=== PATIENT | female | born 1990 | race Caucasian/White ===

== ENCOUNTER → 2016-07-28 | Outpatient (CLI) | payer OTHER ==
[~2016-07-28] MED LIST: ALBUAER2 INH; BCPILLS PO; DAYQLIQ; FLNIN NAE; SYMIN160 INH; TRIA0.1L TD
--- NOTE | 2016-07-28 09:05 | DIAGNOSTIC IMAGING REPORT ---
MRI OF THE RIGHT WRIST WITHOUT CONTRAST CLINICAL HISTORY: Right wrist pain. No known trauma. COMPARISON STUDY: No previous studies for comparison. TECHNIQUE: Utilizing a 1.5 Valerie magnet and dedicated coil, multiplanar, multi echo imaging of the right wrist was performed without intra-articular or intravenous contrast. FINDINGS: A marker was placed on the skin at site of maximal pain. This overlies the dorsal medial aspect of the right wrist. There is no marrow edema or marrow replacement. There is linear signal within the ulnar aspect of the TFCC. A definite tear is not identified. The radial attachment is intact. No mass or fluid collection is shown adjacent to the right wrist. Scapholunate and lunotriquetral ligaments appear intact. Note is made of a 5 mm bony excrescence arising from the medial aspect of the distal triquetrum which is contiguous with the underlying marrow. This may reflect an osteochondroma. No additional bony lesions are present. No abnormalities within the carpal tunnel are identified. IMPRESSION: 1. 5 mm bony excrescence arising from the medial aspect of the triquetrum suggestive of a small osteochondroma or a congenital anomaly. Mass effect with mild bowing of the overlying tendons. No evidence for tendinopathy. 2. Linear signal within the ulnar aspect of the TFCC. This is likely within normal limits. A TFCC tear is considered less likely. Electronically signed by: Curtis Anderson M.D. 07/28/2016 9:04 AM Dictated Date/Time: 07/28/2016 8:51 AM
== END | disposition home or self-care (01) ==
LOC: C.MRIBC 07:52
PROVIDERS: ATTEND Orthopaedic Surgery
DX: M25.531 Pain in right wrist (principal); M25.831 Other specified joint disorders, right wrist

== ENCOUNTER → 2016-07-31 | Outpatient (CLI) | payer OTHER | END | disposition home or self-care (01) | LOC: C.LABSPEC 16:49 | PROVIDERS: ATTEND Obstetrics & Gynecology | DX: B37.3 Candidiasis of vulva and vagina (principal) ==

== ENCOUNTER → 2016-08-04 | Outpatient (CLI) | payer OTHER ==
[2016-08-07 08:47] LABS: CHLAMYDIA TRACH RNA*** NOT DETECTED (NOT DETECTED); GC (NEIS GONORRHOEAE)RNA** NOT DETECTED (NOT DETECTED)
== END | disposition home or self-care (01) ==
LOC: C.LABSPEC 14:01
PROVIDERS: ATTEND Obstetrics & Gynecology
DX: Z01.419 Encounter for gynecological examination (general) (routine) without abnormal findings (principal); J30.89 Other allergic rhinitis; Z11.3 Encounter for screening for infections with a predominantly sexual mode of transmission

== ENCOUNTER → 2016-08-04 | Outpatient (CLI) | payer OTHER | END | disposition home or self-care (01) | LOC: C.PAPS 14:28 | PROVIDERS: ATTEND Obstetrics & Gynecology | DX: Z01.419 Encounter for gynecological examination (general) (routine) without abnormal findings (principal); J30.89 Other allergic rhinitis; Z11.3 Encounter for screening for infections with a predominantly sexual mode of transmission ==

== ENCOUNTER → 2017-03-12 | Outpatient (CLI) | payer OTHER | END | disposition home or self-care (01) | LOC: C.LAB1850 10:36 | PROVIDERS: ATTEND Obstetrics & Gynecology | DX: Z31.69 Encounter for other general counseling and advice on procreation (principal) ==

== ENCOUNTER → 2017-10-08 | Outpatient (CLI) | payer OTHER | END | disposition home or self-care (01) | LOC: C.LAB1850 09:05 | PROVIDERS: ATTEND Obstetrics & Gynecology | DX: Z34.02 Encounter for supervision of normal first pregnancy, second trimester (principal) ==

== ENCOUNTER 2019-06-22 00:08 | Observation (INO) ==
--- NOTE | 2019-06-22 00:39 | Emergency Department Note ---
History of Present Illness General Chief complaint: Vaginal Bleeding Stated complaint: EXCESSIVE BLEEDING AFTER MISCARRAGE Time Seen by Provider: 06/22/19 00:20 Source: patient Mode of arrival: ambulatory Limitations: no limitations History of Present Illness Provider complaint: Vaginal bleeding, recent miscarriage Onset (ago): day(s) 10 Location: abdomen Severity: moderate Maximum Pain Intensity: 7 Current Pain Intensity: 7 Quality: + aching and + dull Relieved By: + none Exacerbated By: + none Associated symptoms: + malaise; no chest pain, no fever/chills, no nausea/vomiting and no shortness of breath Treatments prior to arrival: none This is a 28-year-old female who presents due to complaints of lower abdominal pain and vaginal bleeding due to a recent spontaneous . Pt states she was 9 weeks when an ultrasound revealed the baby no longer had a heartbeat. Patient states she does have a history of a bleeding disorder. Patient states she had used Cytotec and had heavy bleeding and presented to the emergency room. Patient states at that time her blood work was reassuring, her ultrasound showed that she had already passed the fetus, and the DIPPING MACHINE OPERATOR and her hardboard supervisor felt she was safe to go home. She states her bleeding had improved since then, and she did follow-up with Dr. Bustamante in the office for recheck. She states she has had bleeding like a light period ever since then until this evening. Patient states at 10 PM this evening she suddenly had heavy bleeding and passage of multiple clots. Patient states for the first hour between 10 and 11 PM she used 4-5 pads that she was feeling very quickly. Patient states she did pass several clots the largest of which was the size of an egg. Patient states on her initial arrival here she passed a large clot in the toilet as well. Patient states she has been feeling weak and tired today with lower abdominal discomfort. Patient denies any sharp pain or cramping. Patient states she does feel lightheaded/dizzy when she stands up. Patient denies nausea vomiting, chest pain or palpitations, shortness of breath. No loss of consciousness or syncopal events. Patient denies any bleeding from any other source. No recent change in bowel or bladder function. No known sick contact with any COVID positive individuals. Pt seen during a time of high acuity and national emergency pandemic while wearing PPE. Review of EMR, patient's hCG on 06/15 was 2848 which is down from her hCG on 06/09 when it was [address]131. Patient has a history of von Willebrand's disease. Home Medications Home Medications Medication Instructions Recorded Confirmed Type albuterol sulfate [Ventolin HFA] 2 puff INHALATION QID PRN 01/21/18 06/22/19 History cetirizine [Zyrtec] 10 mg PO DAILY 01/21/18 06/22/19 History montelukast 10 mg tablet 10 mg PO DAILY #90 tab 01/17/19 06/22/19 Rx escitalopram oxalate 10 mg PO DAILY 06/22/19 06/22/19 History metronidazole 500 mg PO BID 5 Days #10 tab 06/22/19 Rx Allergies Allergy/AdvReac Type Severity Reaction Status Date / Time animal dander Allergy Wheezing Verified 06/22/19 00:38 grass pollen Allergy Wheezing Verified 06/22/19 00:38 No Known Drug Allergies Allergy Unknown Verified 06/22/19 00:38 Past Med/Surg History Medical History Allergic rhinitis Asthma STABLE Hx of varicella Irritable bowel syndrome Rectal fissure Von Willebrand disease, type I DIAGNOSED 2/2 MENORRHAGIA; Plan to administer DDAVP 0.3 mcg/kg one hour prior to delivery (or 9cm) per hematology Surgical History H/O sinus surgery [place] teeth removed Family History Grandfather (Maternal) Alzheimer disease Brother Asthma Social History Preferred Language: Senegalese Communication Ability: Effective Visual Impairment: No Limitations Hearing Ability: Normal Jewelry Sales Representative Required: No Beliefs That Will Affect Care: None marital status: marital status details: Moy Gustafson (31) [phone] Current Living Situation: Spouse Current Living Situation Comment: 7 month old son and spouse, 2 dogs current occupational status: employed current occupation: [employer] Feels Safe at Home: Yes Smoking Status: Never smoker Second Hand Exposure: No ; Hx Alcohol Use: No Hx Substance Use: No Childhood Exposure to Second-Hand Smoke: No Dental Care, Regularly: Yes Physical Activity Frequency: Daily Seatbelt Use: always Sunscreen Use: Yes Review of Systems See HPI for pertinent positives & negatives. and A total of 10 systems reviewed and were otherwise negative Physical Exam Vital Signs Vital Signs - 24 hr 06/22/19 00:08 06/22/19 00:12 06/22/19 00:38 Temperature 36.9 C 36.8 C Temperature Source Oral Oral Pulse Rate 89 84 Pulse Rate [Finger] Pulse Rhythm [Finger] Respiratory Rate 16 20 15 Respiratory Effort / Characteristics Non-Labored Spontaneous Respiratory Depth Normal Normal Respiratory Pattern Blood Pressure 142/80 H 121/78 Blood Pressure [Left Arm] 115/81 Blood Pressure Mean 100 82 Blood Pressure Mean [Left Arm] 92 Blood Pressure Position [Left Arm] Pulse Oximetry 99 100 Oxygen Delivery Method Room Air Room Air Sepsis Action Taken by Nursing No Action Required 06/22/19 01:00 06/22/19 01:30 06/22/19 01:48 Temperature Temperature Source Pulse Rate 78 79 Pulse Rate [Finger] Pulse Rhythm [Finger] Respiratory Rate 17 23 Respiratory Effort / Characteristics Respiratory Depth Respiratory Pattern Blood Pressure 115/81 110/76 110/76 Blood Pressure [Left Arm] Blood Pressure Mean 96 85 85 Blood Pressure Mean [Left Arm] Blood Pressure Position [Left Arm] Pulse Oximetry Oxygen Delivery Method Sepsis Action Taken by Nursing 06/22/19 03:51 06/22/19 04:55 Temperature Temperature Source Pulse Rate Pulse Rate [Finger] 70 70 Pulse Rhythm [Finger] Regular Respiratory Rate 20 20 Respiratory Effort / Characteristics Non-Labored Spontaneous Non-Labored Spontaneous Respiratory Depth Normal Normal Respiratory Pattern Regular Regular Blood Pressure Blood Pressure [Left Arm] 144/78 H 128/82 Blood Pressure Mean Blood Pressure Mean [Left Arm] 100 97 Blood Pressure Position [Left Arm] Lying Lying Pulse Oximetry 99 98 Oxygen Delivery Method Room Air Room Air Sepsis Action Taken by Nursing GENERAL: alert, well appearing, well nourished, no distress, non-toxic EYE EXAM: normal conjunctiva, PERRL and EOM's grossly intact OROPHARYNX: no exudate, no erythema, lips, buccal mucosa, and tongue normal and mucous membranes are moist NECK: supple, no nuchal rigidity, no adenopathy, non-tender LUNGS: Clear to auscultation. Normal chest wall mechanics, no w/r/r HEART: no murmurs, S1 normal and S2 normal ABDOMEN: abdomen soft, lower abdominal tenderness with palpation, normo-active bowel sounds, no masses, no rebound or guarding. BACK: Back is symmetrical on inspection and there is no deformity, no midline tenderness, no CVA tenderness. SKIN: no rashes and no bruising UPPER EXTREMITIES: upper extremities are grossly normal. FROM, nml pulses b/l. LOWER EXTREMITIES: No pitting edema. FROM, nml pulses b/l. NEURO EXAM: Normal sensorium, cranial nerves II-XII grossly intact, normal speech, no gross weakness of arms, no gross weakness of legs. Gross sensation intact. Course Course 0305: Updated patient on results. Patient states bleeding and pain are improved here compared to at home 0313: Case discussed with [facility] DIPPING MACHINE OPERATOR on-call, Dr. Cerda, she will be down to evaluate the patient. Pelvic exam deferred in light of US findings and gyro mechanic evaluation. 0445: Dr. Cerda evaluating the patient. Administered Medications Discontinued Medications Acetaminophen (Tylenol) 650 mg PO Q6H PRN PRN Reason: MILD Pain (Scale 1,2,3) Stop: 07/22/19 07:11 Last Admin: 06/22/19 09:43 Dose: 650 mg Documented by: [id number] Doxycycline Hyclate (Vibramycin) 100 mg PO NOW STA Stop: 06/22/19 09:17 Last Admin: 06/22/19 09:44 Dose: 100 mg Documented by: [id number] Doxycycline Hyclate (Vibramycin) 100 mg PO NOW STA Stop: 06/22/19 10:17 Last Admin: 06/22/19 11:15 Dose: 100 mg Documented by: [id number] Sodium Chloride (Nss 1000ml) 1,000 mls @ 250 mls/hr IV .Q4H NAOMI Stop: 07/22/19 00:44 Last Admin: 06/22/19 06:08 Dose: 250 mls/hr Documented by: [id number] Infusion: 06/22/19 05:10 Dose: 0 mls/hr Documented by: [id number] Admin: 06/22/19 00:52 Dose: 250 mls/hr Documented by: [id number] Desmopressin Acetate 16 mcg/ (Sodium Chloride) 54 mls @ 100 mls/hr IV ONE ONE Stop: 06/22/19 06:02 Last Admin: 06/22/19 06:09 Dose: 100 mls/hr Documented by: [id number] Ondansetron HCl (Zofran) 4 mg IV ONCE PRN PRN Reason: PACU Use Only-Nausea/Vomiting Stop: 06/22/19 14:27 Last Admin: 06/22/19 08:30 Dose: 4 mg Documented by: [id number] Medical Decision Making Differential Diagnosis Differential diagnosis includes etiologies such as ectopic , dysfunction uterine bleeding, bleeding dyscrasia, trauma, infection, as well as others were entertained. Medical Records Attestation: I reviewed the patient's medical records. Home Medications Current Medication List: was personally reviewed by me Laboratory Data Attestation: I reviewed the patient's lab results. Result diagrams: 06/22/19 00:37 06/22/19 00:37 Lab Results 06/22/19 06/22/19 06/22/19 Range/Units 00:37 00:37 00:37 WBC 8.55 (4.8-10.8) K/uL RBC 3.83 L (4.2-5.4) M/uL Hgb 12.3 (12.0-16.0) g/dL Hct 34.3 L (37-47) % MCV 89.6 (80-100) fL MCH 32.1 (25-34) pg MCHC 35.9 (32-36) g/dL RDW Std Deviation 39.3 (36.4-46.3) fL RDW Coeff of Aftab 12.1 (11.5-14.5) % Plt Count 329 (130-400) K/uL MPV 10.2 (7.4-10.4) fL Immature Gran % (Auto) 0.2 % Neut % (Auto) 57.4 % Lymph % (Auto) 32.2 % [place] % (Auto) 4.2 % Eos % (Auto) 5.8 % Baso % (Auto) 0.2 % Immature Gran # (Auto) 0.02 (0.00-0.02) K/uL Neut # (Auto) 4.90 (1.4-6.5) K/uL Lymph # (Auto) 2.75 (1.2-3.4) K/uL [place] # (Auto) 0.36 (0.11-0.59) K/uL Eos # (Auto) 0.50 (0-0.5) K/uL Baso # (Auto) 0.02 (0-0.2) K/uL PT (9.0-12.0) Seconds INR (0.9-1.1) APTT (21.0-31.0) Seconds PTT Ratio Sodium 138 (136-145) mmol/L Potassium 3.5 (3.5-5.1) mmol/L Chloride 105 (98-107) mmol/L Carbon Dioxide 25 (21-32) mmol/L Anion Gap 8.0 (3-11) BUN 8 (7-18) mg/dl Creatinine 0.70 (0.6-1.2) mg/dl Est Cr Clr Drug Dosing 89.1 ml/min Est GFR ( Amer) 135.7 Est GFR (Non-Af Amer) 117.1 BUN/Creatinine Ratio 11.0 (10-20) Glucose 97 (70-99) mg/dl Calcium 8.3 L (8.5-10.1) mg/dl Magnesium 2.0 (1.8-2.4) mg/dl Total Bilirubin 0.3 (0.2-1) mg/dl AST 13 L (15-37) U/L ALT 22 (12-78) U/L Alkaline Phosphatase 64 (45-117) U/L Total Protein 7.6 (6.4-8.2) gm/dl Albumin 3.6 (3.4-5.0) gm/dl Globulin 4.0 (2.5-4.0) gm/dl Albumin/Globulin Ratio 0.9 (0.9-2) HCG, Quant mIU/ml Blood Type A Positive Antibody Screen NEGATIVE 06/22/19 06/22/19 Range/Units 00:37 00:37 WBC (4.8-10.8) K/uL RBC (4.2-5.4) M/uL Hgb (12.0-16.0) g/dL Hct (37-47) % MCV (80-100) fL MCH (25-34) pg MCHC (32-36) g/dL RDW Std Deviation (36.4-46.3) fL RDW Coeff of Aftab (11.5-14.5) % Plt Count (130-400) K/uL MPV (7.4-10.4) fL Immature Gran % (Auto) % Neut % (Auto) % Lymph % (Auto) % [place] % (Auto) % Eos % (Auto) % Baso % (Auto) % Immature Gran # (Auto) (0.00-0.02) K/uL Neut # (Auto) (1.4-6.5) K/uL Lymph # (Auto) (1.2-3.4) K/uL [place] # (Auto) (0.11-0.59) K/uL Eos # (Auto) (0-0.5) K/uL Baso # (Auto) (0-0.2) K/uL PT 10.5 (9.0-12.0) Seconds INR 1.0 (0.9-1.1) APTT 27.7 (21.0-31.0) Seconds PTT Ratio 1.0 Sodium (136-145) mmol/L Potassium (3.5-5.1) mmol/L Chloride (98-107) mmol/L Carbon Dioxide (21-32) mmol/L Anion Gap (3-11) BUN (7-18) mg/dl Creatinine (0.6-1.2) mg/dl Est Cr Clr Drug Dosing ml/min Est GFR ( Amer) Est GFR (Non-Af Amer) BUN/Creatinine Ratio (10-20) Glucose (70-99) mg/dl Calcium (8.5-10.1) mg/dl Magnesium (1.8-2.4) mg/dl Total Bilirubin (0.2-1) mg/dl AST (15-37) U/L ALT (12-78) U/L Alkaline Phosphatase (45-117) U/L Total Protein (6.4-8.2) gm/dl Albumin (3.4-5.0) gm/dl Globulin (2.5-4.0) gm/dl Albumin/Globulin Ratio (0.9-2) HCG, Quant 1000 mIU/ml Blood Type Antibody Screen Imaging Data Radiologist's Impression: Ultrasound pelvic/endovaginal: Thickened heterogenous and hypervascular region along the posterior aspect of the endometrial complex measuring 3.3 x 1.2 cm consistent with retained products of conception. Likely corpus luteal cyst on the right ovary. Normal left ovary. No torsion. Trace free fluid. Radiologist: Devin Delatorre MD Blood Pressure Blood Pressure Findings: Elevated blood pressure Blood Pressure Disposition: Referred to patients primary care provider P[facility]ITO Narrative An order was placed for continuous cardiac monitoring. The monitor shows a rate of 76 with normal sinus rhythm. Pt with ongoing bleeding after taking cytotec for spontaneous found 2 weeks ago. H/H stable despite pt being orthostatic. No heavy bleeding while in the ER. Discussed case with gyro mechanic manager digital ad operations who came and evaluated pt in the ER. Pelvic exam deferred after US findings given pt would be evaluated by gyro mechanic. No evidence of infection. I do not suspect endometritis. Pt made aware of all results and was in agreement with the plan. Impression & Plan Vaginal bleeding, Abdominal pain, Retained products of conception Discharge Plan Visit Data *Final* Discharge Date/Time: 06/22/19 06:10 Chief Complaint: Vaginal Bleeding Stated Complaint: EXCESSIVE BLEEDING AFTER MISCARRAGE ED Provider: Joi Mendenhall Discharge Problem: Vaginal bleeding, Abdominal pain, Retained products of conception Patient Disposition: Admitted As Inpatient Discharge Instructions Interventions: ED Discharge Assessment Last Done: 06/22/19 06:10 Discharge Problem: Abdominal pain Qualifiers: Abdominal location: lower abdomen, unspecified Qualified Code(s): R10.30 - Lower abdominal pain, unspecified
[2019-06-22 00:49] LABS: Basophils # (auto) 0.02 K/uL (0-0.2); Basophils % (auto) 0.2 %; Eosinophils % (auto) 5.8 %; Hematocrit (blood only) 34.3 % (37-47); Hemoglobin 12.3 g/dL (12.0-16.0); Immature Granulocytes # (auto) 0.02 K/uL (0.00-0.02); Immature Granulocytes % (auto) 0.2 %; Lymphocytes # (auto) 2.75 K/uL (1.2-3.4); Lymphocytes % (auto) 32.2 %; Mean Corpuscular Hemoglobin 32.1 pg (25-34); Mean Corpuscular Hgb Conc 35.9 g/dL (32-36); Mean Corpuscular Volume 89.6 fL (80-100); Mean Platelet Volume 10.2 fL (7.4-10.4); Monocytes # (auto) 0.36 K/uL (0.11-0.59); Monocytes % (auto) 4.2 %; Neutrophils % (auto) 57.4 %; Platelet Count 329 K/uL (130-400); RDW Coefficient of Variation 12.1 % (11.5-14.5); RDW Standard Deviation 39.3 fL (36.4-46.3); Red Blood Count 3.83 M/uL (4.2-5.4); White Blood Count 8.55 K/uL (4.8-10.8)
[2019-06-22] MEDS: SODIUM CHLORIDE 0.9% 1000ML 1,000 ML IV SCH ×2 (00:52→06:08)
[2019-06-22 01:37] LABS: Albumin Globulin Ratio 0.9 (0.9-2); Albumin Level 3.6 gm/dl (3.4-5.0); Bilirubin,Total 0.3 mg/dl (0.2-1); Calcium 8.3 mg/dl (8.5-10.1); Creatinine Clr Calc Pharmacy 89.1 ml/min; Est GFR (African American) 135.7; Est GFR (Non-African American) 117.1; Potassium 3.5 mmol/L (3.5-5.1); Total Protein 7.6 gm/dl (6.4-8.2)
--- NOTE | 2019-06-22 05:20 | History & Physical Report ---
Date of Service June 22, 2019 Assessment & Plan (1) Retained products of conception: Given that she had what sounds to be fairly significant bleeding at home and us c/w products of conception, I recommend D&E under ultrasound guidance. She would have the option for further cytotec but given her bleeding and vWD, I think it more prudent to proceed with more definitive procedure. Dr. Bustamante had talked with hematology prior to starting treatment, and thought she would be a good candidate for cytotec, however, noted she should probably get ddavp if she would bleed heavy or need D&E. So will give this now. Plan to proceed with D&E. The risks of the procedure were discussed with the patient including bleeding, transfusion, infection , damage to surrounding structures or perforation of the uterus requiring further surgery or hospitalization, heart attack, blood clot, stroke, , uterine scarring. This procedure is urgent as she has had heavy bleeding, unable to pass pocs and has a bleeding disorder making her more prone to hemorrhage. Consent reviewed and signed. History of Present Illness Chief Complaint: heavy vaginal bleeding, recent sab Primary Care Provider: Rene Espinoza MD Patient is a 28yo wf who was recently diagnosed with a mab. She was treated with vaginal cytotec and presented to the ED with concerns about bleeding on 06/09. It was noted that she passed the sac and her bleeding decreased so d/c home. Patient called me fiorella and noted she had the sudden onset of very heavy bleeding, filling 5 pads soaking wet in one hour and passing large clots. Patient has been crampy since cytotec but noted much more cramping yesterday and with this bleeding. Patient had slowed by the time she got to the ED. h/h is stable. She has a hx of vWD and has taken ddavp with her vaginal delivery and removal of her wisdom teeth. US shows a thickened heterogeneous endometrium with blood flow christoph posteriorly, appears consistent with pocs. Measures 3cm at spots. Allergies Allergy/AdvReac Type Severity Reaction Status Date / Time animal dander Allergy Wheezing Verified 06/22/19 00:38 grass pollen Allergy Wheezing Verified 06/22/19 00:38 No Known Drug Allergies Allergy Unknown Verified 06/22/19 00:38 Home Medications Home Medications Medication Instructions Recorded Confirmed Type albuterol sulfate [Ventolin HFA] 2 puff INHALATION QID PRN 01/21/18 06/22/19 History cetirizine [Zyrtec] 10 mg PO DAILY 01/21/18 06/22/19 History montelukast 10 mg tablet 10 mg PO DAILY #90 tab 01/17/19 06/22/19 Rx escitalopram oxalate 10 mg PO DAILY 06/22/19 06/22/19 History norethindrone-e.estradiol-iron 1 tab PO DAILY 06/22/19 06/22/19 History [Jimmie Fe 03/[birth year] ([birth year])] Patient History Medical History (Updated 06/22/19 @ 05:23 by Chinyere Cerda MD, FACOG) Allergic rhinitis Asthma STABLE Hx of varicella Irritable bowel syndrome Rectal fissure Von Willebrand disease, type I DIAGNOSED 2/2 MENORRHAGIA; Plan to administer DDAVP 0.3 mcg/kg one hour prior to delivery (or 9cm) per hematology Surgical History H/O sinus surgery [place] teeth removed Family History Grandfather (Maternal) Alzheimer disease Brother Asthma Social History Preferred Language: Swedish Communication Ability: Effective Visual Impairment: No Limitations Hearing Ability: Normal 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 Beliefs That Will Affect Care: None marital status: marital status details: Moy Gustafson (31) [phone] Current Living Situation: Spouse Current Living Situation Comment: 7 month old son and spouse, 2 dogs current occupational status: employed current occupation: [employer] Feels Safe at Home: Yes Smoking Status: Never smoker Second Hand Exposure: No ; Hx Alcohol Use: No Hx Substance Use: No Childhood Exposure to Second-Hand Smoke: No Dental Care, Regularly: Yes Physical Activity Frequency: Daily Seatbelt Use: always Sunscreen Use: Yes OB History g1-- x 1, received prophylactic ddavp g2--mab at 8 weeks Review of Systems All systems reviewed & are unremarkable except as noted in HPI & below Physical Exam Constitutional: WD/WN, vitals as above Respiratory: normal respiratory effort, lungs clear to auscultation Cardiovascular: RRR, no murmur, no edema Gastrointestinal (Abdomen): soft, nt, nd Psychiatric: A+Ox3, euthymic affect Genitourinary: minimal blood on perineum, on speculum exam--small amount of blood in vagina, pocs protruding from os, partially removed with a forcep, suspect more in cx/uterus. Results & Data Vital Signs (Past 12 Hours) Vital Signs Temp Pulse Pulse Resp BP BP Pulse Ox 06/22/19 04:55 70 20 128/82 98 06/22/19 03:51 70 20 144/78 H 99 06/22/19 01:48 110/76 06/22/19 01:30 79 23 110/76 06/22/19 01:00 78 17 115/81 06/22/19 00:38 84 15 121/78 06/22/19 00:12 36.8 C 89 20 142/80 H 100 06/22/19 00:08 36.9 C 16 115/81 99 Coding Level of Care Code 79944 OBS Care - Level 2 Diagnoses Retained products of conception
[2019-06-22] MEDS ORDERED: SODIUM CHLORIDE 0.9% IV STA (05:24)
[2019-06-22] MEDS ORDERED: DESMOPRESSIN ACETATE IV STA (05:24)
[2019-06-22] MEDS ORDERED: DESMOPRESSIN ACETATE 16 MCG in SODIUM CHLORIDE 0.9% 50 ML IV ONE (05:30)
[2019-06-22] MEDS ORDERED: SCOPOLAMINE 1.5 MG TDSY ONE (06:25)
[2019-06-22] MEDS ORDERED: ONDANSETRON INJ 2 MG/ML 2 ML VIAL IV PRN (06:27)
[2019-06-22] MEDS ORDERED: fentaNYL citrate 100 MCG/2 ML VIAL IV PRN (06:27)
[2019-06-22] MEDS ORDERED: ePHEDrine sulfate 50 MG/ML AMP IV PRN (06:27)
[2019-06-22] MEDS ORDERED: ATROPINE SULFATE 0.1 MG/ML 10ML SYR IV PRN (06:27)
--- NOTE | 2019-06-22 06:27 | Anesthesiology Consultation ---
Date of Service June 22, 2019 Assessment & Plan (1) Encounter for pre-operative examination: Chart Review Chart Review: Acceptable Risk for Surgery and Patient NOT seen in Pre Admission Testing Consults Requested none Proposed Anesthesia Risk / Benefits Reviewed With: PT / POA / Parent / Guardian, Accepts Plan and Informed Consent Obtained History Surgery Operation Date: 06/22/19 05:45 Proposed Procedures p Dilation and Evacuation - Chinyere Cerda MD, FACOG Height/Weight Height: 4 ft 11 in Weight: 54.2 kg Allergies Allergy/AdvReac Type Severity Reaction Status Date / Time animal dander Allergy Wheezing Verified 06/22/19 00:38 grass pollen Allergy Wheezing Verified 06/22/19 00:38 No Known Drug Allergies Allergy Unknown Verified 06/22/19 00:38 Medications Home Medications Medication Instructions Recorded Confirmed Last Taken albuterol sulfate [Ventolin HFA] 2 puff INHALATION QID PRN 01/21/18 06/22/19 03/05/18 22:00 cetirizine [Zyrtec] 10 mg PO DAILY 01/21/18 06/22/19 06/10/19 montelukast 10 mg tablet 10 mg PO DAILY #90 tab 01/17/19 06/22/19 06/10/19 escitalopram oxalate 10 mg PO DAILY 06/22/19 06/22/19 Unknown norethindrone-e.estradiol-iron 1 tab PO DAILY 06/22/19 06/22/19 Unknown [Jimmie Fe 03/14 ()] Active Medications Generic Name Dose Route Start Last Admin Trade Name Freq PRN Reason Stop Dose Admin Sodium Chloride 1,000 mls @ 250 mls/hr 06/22/19 00:45 06/22/19 06:08 Nss 1000ml IV 07/22/19 00:44 250 mls/hr .Q4H NAOMI Administration NPO Date Last Intake of Fluids: 06/21/19 Time Last Intake of Fluids: 20:00 Last Intake of Fluids Comment: gatorade Date Last Intake of Solids: 06/21/19 Time Last Intake of Solids: 19:00 Last Intake of Solids Comment: steak and potatoes and spinach Past Medical History Medical History Allergic rhinitis Asthma STABLE Hx of varicella Irritable bowel syndrome Rectal fissure Von Willebrand disease, type I DIAGNOSED 2/2 MENORRHAGIA; Plan to administer DDAVP 0.3 mcg/kg one hour prior to delivery (or 9cm) per hematology Exercise / Class Metabolic Activity II 4-5 Yardwork/Stairs/Walk up hill Past Family History Family History Grandfather (Maternal) Alzheimer disease Brother Asthma Past Surgical History Surgical History H/O sinus surgery [place] teeth removed Past Anesthesia History No Hx of Anesthesia Complications and No Family Hx of Anesthesia Complications History of PONV No Hx of PONV and No Hx of Motion Sickness Social History Smoking Status: Never smoker Hx Alcohol Use: No Alcohol type: wine Hx Substance Use: No substance use type: does not use Physical Exam Vital Signs Last Vital Signs Temp 36.8 C 06/22/19 00:12 Pulse 70 06/22/19 04:55 Resp 20 06/22/19 04:55 BP 128/82 06/22/19 04:55 Pulse Ox 98 06/22/19 04:55 ENMT Mouth: no dentition abnormality Thyromental Distance: > or= 3.5 Finger Breadths Mallampati Class: II Neck normal visual inspection Respiratory normal respiratory effort Auscultation: lungs clear to auscultation bilaterally Cardiovascular Rate/Rhythm: regular rate and regular rhythm Psychiatric Orientation: alert Testing Laboratory Results 06/22/19 00:37 06/22/19 00:37 HCG, Quant 1000 mIU/ml 06/22/19 00:37 Blood Type A Positive 06/22/19 00:37 Antibody Screen NEGATIVE 06/22/19 00:37 06/22/19 00:37 HCG, Quant 1000
[2019-06-22] MEDS ORDERED: fentaNYL citrate 100 MCG/2 ML VIAL ONE (06:32)
[2019-06-22 06:33] LABS: Partial Thromboplastin Time 27.7 Seconds (21.0-31.0); Prothrombin Time 10.5 Seconds (9.0-12.0)
[2019-06-22] MEDS ORDERED: ONDANSETRON INJ 2 MG/ML 2 ML VIAL ONE ×2 (07:06→08:28)
[2019-06-22] MEDS ORDERED: DEXAMETHASONE SOD INJ 4 MG/ML VIAL ONE (07:06)
[2019-06-22] MEDS ORDERED: PROPOFOL IV EMULSION 10 MG/ML 20 ML VIAL IV ONE (07:06)
[2019-06-22] MEDS ORDERED: MoRPHine SULFATE 2 MG/ML CARP IV PRN ×3 (07:12)
[2019-06-22] MEDS ORDERED: OXYCODONE/ACETAMINOPHEN 5mg/325mg TAB PO PRN ×2 (07:12)
[2019-06-22] MEDS ORDERED: IBUPROFEN 200 MG TAB PO PRN (07:12)
[2019-06-22] MEDS ORDERED: KETOROLAC TROMETHAMINE 15 MG/ML VIAL IV PRN (07:12)
[2019-06-22] MEDS ORDERED: ACETAMINOPHEN 325 MG TAB PO PRN (07:12)
[2019-06-22] MEDS ORDERED: KETOROLAC 30 MG/ML VIAL IV PRN (07:12)
--- NOTE | 2019-06-22 07:14 | Post Operative Brief Note ---
PG Immediate Post Op with CF Date of Surgery June 22, 2019 Pre & Post Diagnosis Operation Date: 06/22/19 05:45 Pre-Op Diagnosis: EXCESSIVE BLEEDING AFTER MISCARRAGE, retained POC Post-Op Diagnosis: EXCESSIVE BLEEDING AFTER MISCARRAGE, retained POC I identified the patient and participated in the time-out.: Yes Procedure Operation Date: 06/22/19 05:45 Actual Procedures p Dilation and Evacuation(Not Applicable) - Chinyere Cerda MD, FACOG Surgeon Chinyere Cerda MD, FACOG Diesel Tractor Operator none Estimated Blood Loss 25 Findings Consistent with Post-Op Diagnosis Specimens Specimen Description: Permanent Specimen: A) Products of Conception
[2019-06-22] MEDS ORDERED: LACTATED RINGER'S 1,000 ML IV SCH (07:15)
--- NOTE | 2019-06-22 07:35 | Ultrasound Report ---
EXAMINATION: PELVIC ULTRASOUND (transabdominal and endovaginal scanning) CLINICAL HISTORY: Spontaneous . Heavy bleeding. COMPARISON STUDY: 06/16/2019 FINDINGS: Following transabdominal scanning, endovaginal scanning was performed to better evaluate the endometr ium. The uterus measured 7.9 x 4.2 x 5.4 cm.. The cervix appears thickened and contains hemorrhagic materi al. The endometrial stripe measured 12 mm.. There is a hypervascular heterogeneous area located posterior to the endometrium measuring 33 x 12 mm. This could represent retained products of conception. The right ovary measured 33 x 17 x 20 mm.. The left ovary measured 23 x 17 x 25 mm.. There is no ultrasonographic evidence of ovarian torsion. It should be noted that ovarian torsion can be present with normal Doppler ultrasonographic findings. There was no evidence of pathologic free pelvic fluid. IMPRESSION: 1. 33 x 12 mm hypervascular focus along the posterior aspect of the endometrium, suspicious for retai rebecca products of conception. ACT 112: Negative or not required by law. Electronically signed by: Stefan Hatfield M.D. 06/22/2019 7:33 AM
--- NOTE | 2019-06-22 08:30 | Anesthesiology Progress Note ---
Date of Service June 22, 2019 Anesthesia Post Procedure Vital Signs Vital Signs: Temp Pulse Pulse Pulse Resp BP BP 06/22/19 08:10 75 14 06/22/19 08:00 36.3 C L 78 16 06/22/19 07:50 100 H 18 06/22/19 07:44 36.6 C 105 H 18 06/22/19 04:55 70 20 128/82 06/22/19 03:51 70 20 144/78 H 06/22/19 01:48 110/76 06/22/19 01:30 79 23 110/76 06/22/19 01:00 78 17 115/81 06/22/19 00:38 84 15 121/78 06/22/19 00:12 36.8 C 89 20 142/80 H 06/22/19 00:08 36.9 C 16 115/81 BP Pulse Ox 06/22/19 08:10 117/65 100 06/22/19 08:00 117/66 100 06/22/19 07:50 120/71 100 06/22/19 07:44 109/80 100 06/22/19 04:55 98 06/22/19 03:51 99 06/22/19 01:48 06/22/19 01:30 06/22/19 01:00 06/22/19 00:38 06/22/19 00:12 100 06/22/19 00:08 99 Pain Intensity Abdomen: Pain Intensity: 2 Transfer of Care Handoff Completed per policy Notes Mental Status: alert / awake / arousable and participated in evaluation Patient Amnestic to Procedure: Yes Nausea / Vomiting: adequately controlled Pain: adequately controlled Airway Patency, RR, SpO2: stable & adequate BP & HR: stable & adequate Hydration State: stable & adequate Anesthetic Complications: no major complications apparent
--- NOTE | 2019-06-22 08:58 | Operative Report (OR) ---
DATE OF OPERATION: 06/22/2019 PREOPERATIVE DIAGNOSES: 1. Retained products of conception after . 2. Von Willbrand disease. 3. Heavy vaginal bleeding. POSTOPERATIVE DIAGNOSES: Same. PROCEDURE: D&E under ultrasound guidance SURGEON: Chinyere Cerda MD ANESTHESIA: General per endotracheal tube. ESTIMATED BLOOD LOSS: 25 mL FLUIDS: 800 mL URINE OUTPUT: Small amount of yellow urine drained from the bladder at the end of the procedure. INDICATIONS: The patient is a 1, para 1-0-0-1 who underwent a Cytotec medical of an 8 week mab. She had heavy bleeding and question of retained products of conception. FINDINGS: Uterus sounded to 8 cm. An 8 mm suction curette was used. I was able to palpate the fundusl and there was no palpable products of conception remaining and, under ultrasound guidance, I did not see any further products of conception. COMPLICATIONS: None. DRAINS: None. DISPOSITION: To recovery room in stable condition. DESCRIPTION OF PROCEDURE: The patient was taken to the operating room where she was identified verbally and by bracelet. She was placed in dorsal supine position. General anesthesia was induced without difficulty. A 20-minute waiting period was enforced. The patient was then placed in dorsal lithotomy position in [facility] stirrups and prepped and draped in normal sterile fashion. Timeout was held, identifying correct patient, procedure and positioning. The bladder was drained of urine and exam under anesthesia revealed a small, mobile, anteverted uterus with minimal bleeding. Uterus was sounded to 8 cm, dilated to #29 Hegar dilator. An 8 mm curette was placed under direct ultrasound visualization and products of conception were removed. I was able to palpate the uterine canal and fundus and there appeared to be no retained products. this was confirmed by ultrasound.. All instruments were removed. Bleeding was evaluated and found to be minimal and the procedure was terminated. All sponge, lap and needle counts were correct x2. The patient tolerated the procedure well and was taken to recovery room in stable condition. I attest to the content of the Intraoperative Record and any orders documented therein. Any exceptions are noted below. MARCK
[2019-06-22] MEDS ORDERED: DOXYCYCLINE HYCLATE 100 MG CAP PO STA ×2 (09:16→10:16)
[2019-06-22] MEDS ORDERED: DOXYCYCLINE HYCLATE 100 MG CAP PO ONE (11:15)
--- NOTE | 2019-06-22 13:33 | Electrocardiogram Report ---
Test Reason : Blood Pressure : / mmHG Vent. Rate : 075 BPM Atrial Rate : 075 BPM P-R Int : 138 ms QRS Dur : 108 ms QT Int : 396 ms P-R-T Axes : 037 063 045 degrees QTc Int : 442 ms Normal sinus rhythm with sinus arrhythmia RSR' or QR pattern in V1 suggests right ventricular conduction delay Borderline ECG When compared with ECG of 17-DEC-2011 09:25, No significant change Confirmed by Keyur Roque ([id number]) on 06/22/2019 1:33:09 PM Referred By: REFERRED SELF Confirmed By:Keyur Roque
--- NOTE | 2019-06-23 11:25 | Discharge Summary (DS) ---
PREOPERATIVE DIAGNOSES: 1. Retained products of conception, status post Cytotec miscarriage. 2. Heavy vaginal bleeding. 3. Von Willebrand disease. DISCHARGE DIAGNOSES: 1. Retained products of conception, status post Cytotec miscarriage. 2. Heavy vaginal bleeding. 3. Von Willebrand disease. PROCEDURES: 1. DDAVP administration. 2. D and E. HISTORY OF PRESENT ILLNESS: The patient is a 28-year-old white female who was recently diagnosed with a missed AB. She was treated with vaginal Cytotec and presented to the ED with concerns about bleeding after taking the Cytotec on 06/09. It was noted that she had passed a sac and her bleeding decreased, so she was discharged home. The patient called on the evening/hematology oncology consultant of admission and noted that she had a sudden onset of very heavy bleeding, filling 5 pads, soaking wet in 1 hour and passing large clots. She has been crampy since the Cytotec, but noted much more cramping yesterday and then started with this bleeding. By the time the patient got to the Emergency Department, she had slowed. Her H and H was stable. She has a history of von Willbrand disease and has taken DDAVP with her vaginal delivery and removal of her wisdom teeth. Ultrasound shows a thickened heterogeneous endometrium with blood flow especially posteriorly. This appears to be consistent with products of conception measures 3 cm at spots. For the rest of patient's history and physical, please see her history and physical. ASSESSMENT: Given that she has what sounds to be fairly significant bleeding at home and ultrasound consistent with products of conception, I recommended dilation and evacuation under ultrasound guidance with DDAVP prior to going back to the operating room. HOSPITAL COURSE: The patient was admitted. The patient was taken to the operating room where a D and E was performed. She was given DDAVP prior to going to the operating room. Products of conception were removed. The patient was observed for a few hours given her von Willbrand disease to make sure that her bleeding was not too excessive. This was minimal and she was discharged home a few hours after her D and E. She will have MetroGel to take at home and got a dose of 100 mg of doxycycline prior to discharge.
== END 2019-06-22 11:25 | disposition home or self-care (01) ==
LOC: ED 00:08 → 4S2 06:10 → OR 06:10

== ENCOUNTER 2022-09-08 07:31 | Inpatient (IN) ==
[2022-09-08] MEDS ORDERED: OXYTOCIN 30 UNITS/500 ML BAG IV PRN ×3 (07:36→16:39)
[2022-09-08] MEDS ORDERED: LIDOCAINE 1% LOCAL 20 ML VIAL INFIL PRN (07:36)
[2022-09-08] MEDS ORDERED: SODIUM CHLORIDE 0.9% 250 ML IV PRN (07:54)
[2022-09-08] MEDS ORDERED: PENICILLIN G POTASSIUM 6 MU in DEXTROSE 5% 250 ML IV ONE (08:00)
[2022-09-08 08:05] LABS: Hematocrit (blood only) 32.9 % (37.0-47.0); Hemoglobin 11.2 g/dl (12.0-16.0); Mean Corpuscular Hemoglobin 31.4 pg (25.0-34.0); Mean Corpuscular Volume 92.2 fL (80.0-100.0); Platelet Count 191 K/uL (130-400); RDW Coefficient of Variation 15.1 % (11.5-14.5); RDW Standard Deviation 51.3 fL (36.4-46.3); Red Blood Count 3.57 M/uL (4.20-5.40); White Blood Count 6.53 K/ul (4.8-10.8)
--- NOTE | 2022-09-08 08:56 | History & Physical Report ---
Date of Service September 08, 2022 Assessment & Plan Admission and Anticipated Discharge Date Admission Date: September 08, 2022 History of Present Illness Primary Care Provider: NO PCP Pt is a 31 y/o female currently at 39 0/7 WGA with an CATY of 09/15/22 as determined by ultrasound who is here for induction. Her was uncomplicated. Patient states that she is feeling well today. She states her past deliveries have been uncomplicated. Contractions; yes movement; yes Fluid loss; no Bloody show; no [] Had regular appointments with OB. Labs: []/[]/[] Blood type: [] Antibody screen: [] Hg: [today] Hct: [today] WBC: [today] Plt: [today] Rubella: [] VDRL/RPR: [] Gonorrhea: [] Chlamydia: [] HIV: [] HbSAg: [] GBS: [] Other screens: [] cff-DNA: [] CF: [] SMA: [] Allergies Allergy/AdvReac Type Severity Reaction Status Date / Time animal dander Allergy Intermediate WHEEZING-ASTHMA Verified 09/01/22 10:39 ATTACK grass pollen Allergy Intermediate WHEEZING-ASTHMA Verified 09/01/22 10:39 ATTACK Home Medications Medication Instructions Recorded Confirmed Type montelukast 10 mg tablet 10 mg PO DAILY #90 tabs 11/21/21 09/08/22 Rx cetirizine 10 mg tablet (Zyrtec) 10 mg PO DAILY 12/31/21 09/08/22 History prenat.vits,[place],[id number] 1 tab PO DAILY 02/03/22 09/08/22 History ferrous sulfate 325 mg (65 mg 325 mg PO DAILY 03/26/22 09/08/22 History iron) tablet Patient History Medical History Acid reflux with Allergic rhinitis Asthma stable per pt; last rescue inhaler use several yrs ago Depression with anxiety Elective induction of labor planned Hx of varicella Irritable bowel syndrome Von Willebrand disease, type I Was following with Jose at time of last , now following with [facility] heme/onc. Recommendations scanned in to EMR. Surgical History H/O dilation and curettage H/O sinus surgery [place] teeth removed Family History Grandfather (Maternal) Alzheimer disease Brother Asthma Denies family history of Sudden Ovarian cancer Prostate cancer Diabetes Depression Heart disease Myocardial infarction Breast cancer Lung cancer Colorectal cancer Cancer Hypertension Stroke Social History Smoking Status: Never smoker Second Hand Exposure: No; Do You Dip or Chew Tobacco: No; Hx Alcohol Use: No Hx Substance Use: No Preferred Language: [place] Communication Ability: Effective Visual Impairment: No Limitations Hearing Ability: Normal Acetylene Gas Compressor Required: No Beliefs That Will Affect Care: None marital status: marital status details: Moy Gustafson (34) [phone] Current Living Situation: Spouse Current Living Situation Comment: son and spouse, 2 children 2 dogs current occupational status: employed current occupation: [employer] How many Children do You have: 2 Other Information That Helps Us Care for You: No Feels Safe at Home: Yes Safety Concerns: Feels Safe At This Time Childhood Exposure to Second-Hand Smoke: No caffeine: Yes Dental Care, Regularly: Yes Physical Activity Frequency: Daily Seatbelt Use: always Sunscreen Use: Yes Assistive Devices: None Review of Systems no fever, no chills and no sweats no dyspnea no difficulty breathing no chest pain and no palpitations no dysuria no headache(s) no changes in vision no breast pain Physical Exam Physical Exam: General: Alert, oriented. No acute distress. Cardiac: Regular rate and rhythm, no murmurs, gallops, or rubs. Respiratory: Clear to auscultation bilaterally a/p, no wheezes, rales, or rhonchi. No increased work of breathing. No respiratory distress. Abdomen: Gravid, FH [] cm. [] FHTs. Position: [] Pelvic: Dilation [] cm, Effacement [], Station [] per []. Lower extremities: No lower extremity edema or swelling. No deep calf pain. Lisa's negative bilaterally. Results & Data Vital Signs (Past 12 Hours) Vital Signs Temp Pulse Resp BP 09/08/22 08:27 36.8 C 20 09/08/22 07:55 36.8 C 09/08/22 07:44 64 110/68 Code Status & VTE Plan VTE Prophylaxis Plan VTE Prophylaxis will be ordered: No
[2022-09-08] MEDS: LACTATED RINGER'S 1,000 ML IV PRN ×2 (09:01→10:37)
--- NOTE | 2022-09-08 09:03 | History & Physical Report ---
Date of Service September 08, 2022 Assessment & Plan (1) 39 weeks gestation of : (2) Carrier of group B Streptococcus: (3) Von Willebrand disease, type I: Plan admit, iv, labs. pcn for gbs pos. fhts categ 1. plan arom after labor pattern established. follow protocol per [place] [facility] [place] dev. Admission and Anticipated Discharge Date Admission Date: September 08, 2022 History of Present Illness Chief Complaint: planned induction Primary Care Provider: NO PCP 31yo at 39 weeks ega presents to LD for planned induction for h/o Von Willebrand disease, type 1 and elective. Notes having some ctx over weekend. No rom, no vb. +FM. PNC c/b 1. Von Willebrand's, has hematology md [place] [facility] [place], plan on protocol on office record, did bring dev with her. 2. GBS +urine, plan pcn PNL rh pos, ri, gbs pos urine OBH: x 1 GYNH: nl paps Allergies Allergy/AdvReac Type Severity Reaction Status Date / Time animal dander Allergy Intermediate WHEEZING-ASTHMA Verified 09/01/22 10:39 ATTACK grass pollen Allergy Intermediate WHEEZING-ASTHMA Verified 09/01/22 10:39 ATTACK Home Medications Medication Instructions Recorded Confirmed Type montelukast 10 mg tablet 10 mg PO DAILY #90 tabs 11/21/21 09/08/22 Rx cetirizine 10 mg tablet (Zyrtec) 10 mg PO DAILY 12/31/21 09/08/22 History prenat.vits,[place],[id number] 1 tab PO DAILY 02/03/22 09/08/22 History ferrous sulfate 325 mg (65 mg 325 mg PO DAILY 03/26/22 09/08/22 History iron) tablet Patient History Medical History (Updated 09/08/22 @ 09:03 by Corin Albarran MD, FACOG) Acid reflux with Allergic rhinitis Asthma stable per pt; last rescue inhaler use several yrs ago Depression with anxiety Elective induction of labor planned Hx of varicella Irritable bowel syndrome Von Willebrand disease, type I Was following with [facility] at time of last , now following with [facility] heme/onc. Recommendations scanned in to EMR. Surgical History H/O dilation and curettage H/O sinus surgery [place] teeth removed Family History Grandfather (Maternal) Alzheimer disease Brother Asthma Denies family history of Sudden Ovarian cancer Prostate cancer Diabetes Depression Heart disease Myocardial infarction Breast cancer Lung cancer Colorectal cancer Cancer Hypertension Stroke Social History Smoking Status: Never smoker Second Hand Exposure: No; Do You Dip or Chew Tobacco: No; Hx Alcohol Use: No Hx Substance Use: No Preferred Language: Guyanese Communication Ability: Effective Visual Impairment: No Limitations Hearing Ability: Normal Kennel Attendant Required: No Beliefs That Will Affect Care: None marital status: marital status details: Moy Gustafson (34) [phone] Current Living Situation: Spouse Current Living Situation Comment: son and spouse, 2 children 2 dogs current occupational status: employed current occupation: [employer] How many Children do You have: 2 Other Information That Helps Us Care for You: No Feels Safe at Home: Yes Safety Concerns: Feels Safe At This Time Childhood Exposure to Second-Hand Smoke: No caffeine: Yes Dental Care, Regularly: Yes Physical Activity Frequency: Daily Seatbelt Use: always Sunscreen Use: Yes Assistive Devices: None Review of Systems as per Subjective / HPI Physical Exam Constitutional: WD/WN, vitals as above Respiratory: normal respiratory effort, lungs clear to auscultation Cardiovascular: Rate/Rhythm: regular rate and regular rhythm Gastrointestinal (Abdomen): soft gravid nt efw 7-8# Musculoskeletal: no edema nontender calves Neurologic: grossly normal Psychiatric: A+Ox3, euthymic affect Genitourinary: Manual OB Exam: + cervical dilation 2 cm, + cervical effacement 70% and + station -2 OB Exam Monitor Tracing: + external FHT monitor used, + external uterine monitor used, + category I and + normal FHT variability Results & Data Vital Signs (Past 12 Hours) Vital Signs Temp Pulse Resp BP 09/08/22 08:27 98.2 F 20 09/08/22 07:55 98.2 F 09/08/22 07:44 64 110/68 Code Status & VTE Plan VTE Prophylaxis Plan VTE Prophylaxis will be ordered: No Coding Level of Care Code None Diagnoses 39 weeks gestation of Z3A.39 Carrier of group B Streptococcus Z22.330 Von Willebrand disease, type I D68.0
[2022-09-08] MEDS ORDERED: fentaNYL citrate PF 100 MCG/2 ML VIAL ONE (10:06)
[2022-09-08] MEDS ORDERED: ePHEDrine sulfate 50 MG/ML AMP ONE (10:06)
[2022-09-08] MEDS ORDERED: BUPIVACAINE 0.25% PF 30 ML VIAL ONE (10:06)
[2022-09-08] MEDS ORDERED: SODIUM CHLORIDE 0.9% PF INJ 10 ML VIAL ONE (10:06)
[2022-09-08] MEDS ORDERED: fentaNYL 2MCG/ML ROPIVACAINE 1.25MG/ML 100 ML BAG EPI ONE (10:07)
[2022-09-08] MEDS ORDERED: LIDOCAINE 2%/EPINEPHRINE 1:200,000 20 ML PF ONE (10:07)
[2022-09-08] MEDS ORDERED: NALBUPHINE HCL INJ 10 MG/ML AMP IV PRN (10:31)
[2022-09-08] MEDS ORDERED: LIDOCAINE 2%/EPINEPHRINE 1:200,000 20 ML PF EPI STA (10:31)
[2022-09-08] MEDS ORDERED: diphenhydrAMINE 50 MG/ML VIAL IV PRN (10:31)
[2022-09-08] MEDS ORDERED: BUPIVACAINE 0.25% PF 30 ML VIAL EPI PRN (10:31)
[2022-09-08] MEDS ORDERED: NALOXONE HCL 0.4 MG/1 ML VIAL/CARP IV PRN (10:31)
[2022-09-08] MEDS ORDERED: LIDOCAINE 2% MPF LOCAL 5 ML VIAL EPI PRN (10:31)
[2022-09-08] MEDS ORDERED: fentaNYL citrate PF 100 MCG/2 ML VIAL EPI PRN (10:31)
[2022-09-08] MEDS ORDERED: fentaNYL citrate PF 100 MCG/2 ML VIAL EPI STA (10:31)
[2022-09-08] MEDS ORDERED: BUPIVACAINE 0.25% PF 30 ML VIAL EPI STA (10:31)
[2022-09-08] MEDS ORDERED: ONDANSETRON INJ 2 MG/ML 2 ML VIAL IV PRN (10:31)
[2022-09-08] MEDS ORDERED: NALOXONE HCL 1 MG in SODIUM CHLORIDE 0.9% 1000ML 1,000 ML IV PRN (10:31)
[2022-09-08] MEDS ORDERED: SODIUM CHLORIDE 0.9% PF INJ 10 ML VIAL EPI STA (10:31)
[2022-09-08] MEDS ORDERED: ePHEDrine sulfate 50 MG/ML AMP IV PRN (10:31)
[2022-09-08] MEDS ORDERED: ROPIVACAINE 0.5% PF 5 MG/ML 20 ML VIAL EPI PRN (10:31)
[2022-09-08] MEDS ORDERED: fentaNYL 2MCG/ML ROPIVACAINE 1.25MG/ML 100 ML BAG EPI PRN (10:31)
--- NOTE | 2022-09-08 10:34 | Anesthesiology Consultation ---
Date of Service September 08, 2022 Assessment & Plan (1) Encounter for pre-operative examination: Plan von willebrand type 1. two uneventful epidurals before without bleeding difficulty. heme onc following and did not recommend any interventions or meds prior to epidural placement. recs scanned into emr. risks and benefits discussed. she is aware of increased bleeding risk but wishes to proceed. all questions answered. Chart Review Chart Review: Patient NOT seen in Pre Admission Testing and Acceptable Risk for Labor Epidural Consults Requested none History Height/Weight Height: 4 ft 11 in Weight: 55.792 kg Allergies Allergy/AdvReac Type Severity Reaction Status Date / Time animal dander Allergy Intermediate WHEEZING-ASTHMA Verified 09/01/22 10:39 ATTACK grass pollen Allergy Intermediate WHEEZING-ASTHMA Verified 09/01/22 10:39 ATTACK Medications Home Medications Medication Instructions Recorded Confirmed Last Taken montelukast 10 mg tablet 10 mg PO DAILY #90 tabs 11/21/21 09/08/22 09/07/22 cetirizine 10 mg tablet (Zyrtec) 10 mg PO DAILY 12/31/21 09/08/22 09/07/22 prenat.vits,[place],[id number] 1 tab PO DAILY 02/03/22 09/08/22 09/07/22 ferrous sulfate 325 mg (65 mg 325 mg PO DAILY 03/26/22 09/08/22 08/05/22 iron) tablet Active Medications Generic Name Dose Route Start Last Admin Trade Name Freq PRN Reason Stop Dose Admin Oxytocin 30 units in 500 mls @ 3 mls/hr 09/08/22 07:36 09/08/22 09:31 Pitocin IV 09/10/22 07:35 0.18 units/hr .Q24H PRN 3 mls/hr Labor Induction/Augmentation Titration Protocol 0.18 UNITS/HR Lactated Ringer's 1,000 mls @ 125 mls/hr 09/08/22 07:36 09/08/22 11:00 Lr IV 09/10/22 07:35 125 mls/hr .Q8H PRN Infusion L&D Protocol Protocol Past Medical History Medical History Acid reflux with Allergic rhinitis Asthma stable per pt; last rescue inhaler use several yrs ago Depression with anxiety Elective induction of labor planned Hx of varicella Irritable bowel syndrome Von Willebrand disease, type I Was following with Jose at time of last , now following with [facility] heme/onc. Recommendations scanned in to EMR. Exercise / Class Metabolic Activity II 4-5 Yardwork/Stairs/Walk up hill Past Family History Family History Grandfather (Maternal) Alzheimer disease Brother Asthma Denies family history of Sudden Ovarian cancer Prostate cancer Diabetes Depression Heart disease Myocardial infarction Breast cancer Lung cancer Colorectal cancer Cancer Hypertension Stroke Past Surgical History Surgical History H/O dilation and curettage H/O sinus surgery [place] teeth removed Past Anesthesia History No Hx of Anesthesia Complications and No Family Hx of Anesthesia Complications History of PONV No Hx of PONV and No Hx of Motion Sickness Social History Smoking Status: Never smoker Do You Dip or Chew Tobacco: No Hx Alcohol Use: No Alcohol type: wine Hx Substance Use: No substance use type: does not use Physical Exam Vital Signs Last Vital Signs Temp 36.8 C 09/08/22 08:27 Pulse 75 09/08/22 10:55 Resp 18 09/08/22 10:30 BP 108/63 09/08/22 10:57 Pulse Ox 100 09/08/22 10:54 Testing Laboratory Results 09/08/22 07:51 Blood Type A Positive 09/08/22 07:51 Antibody Screen NEGATIVE 09/08/22 07:51
[2022-09-08] MEDS ORDERED: PENICILLIN G POTASSIUM 3 MU in DEXTROSE 5% 100 ML IV PRN (10:36)
--- NOTE | 2022-09-08 16:27 | Delivery Summary ---
Vaginal Delivery Summary Date of Service September 08, 2022 Vaginal Delivery Summary and 2nd Degree LAC The patient dilated to complete and pushed to deliver a viable female infant Apgars 8 and 9 via over 2nd degree perineal laceration. Mouth and nose bulb suctioned at perineum. Loose nuchal x 1 reduced. Shoulders and body delivered with ease. Infant was vigorous and crying at . Cord clamped at 40 seconds of life and infant to maternal abdomen where the cord was then doubly clamped and cut. Placenta delivered spontaneously and intact, three-vessel cord. Hemostasis achieved with dilute pitocin and uterine massage and drainage of the bladder for approximately 150 cc under sterile conditions. Cervix and sulci intact. Laceration reapproximated with 3-0 vicryl in typical fashion. EBL 300 cc. Mother and baby stable in recovery. [facility] [place] Charge Delivery Type Details: and 2nd Degree LAC
[2022-09-08] MEDS ORDERED: HYDROCORTISONE ACETATE 25 MG SUPP PR PRN (16:39)
[2022-09-08] MEDS ORDERED: DIPHTHERIA/TETANUS/PERTUSSIS Vaccine (Tdap, Age 7+yrs) 0.5mL SYR/VL IM ONE (16:39)
[2022-09-08] MEDS ORDERED: oxyCODONE/ACETAMINOPHEN 5mg/325mg TAB PO PRN (16:39)
[2022-09-08] MEDS ORDERED: BENZOCAINE 20% AER SPR 82.5 GM CAN EXT PRN (16:39)
[2022-09-08] MEDS ORDERED: OXYTOCIN 20 UNITS in LACTATED RINGER'S 1,000 ML IV SCH (16:45)
[2022-09-08] MEDS ORDERED: ONDANSETRON 4 MG OD TAB PO PRN (17:03)
--- NOTE | 2022-09-08 17:10 | Anesthesiology Progress Note ---
Date of Service September 08, 2022 Anesthesia Post Procedure Vital Signs Vital Signs: Temp Pulse Resp BP Pulse Ox 09/08/22 16:52 16 09/08/22 16:37 16 09/08/22 16:22 20 09/08/22 08:27 36.8 C 20 09/08/22 17:07 75 09/08/22 17:07 105/71 09/08/22 16:52 68 09/08/22 16:52 108/75 09/08/22 16:47 101 H 09/08/22 16:47 110/71 09/08/22 16:44 99 09/08/22 16:44 71 09/08/22 16:39 99 09/08/22 16:39 67 09/08/22 16:37 66 09/08/22 16:37 109/70 09/08/22 16:34 99 09/08/22 16:34 70 09/08/22 16:29 100 09/08/22 16:29 70 09/08/22 16:26 75 09/08/22 16:26 100/56 L 09/08/22 16:24 100 09/08/22 16:24 77 09/08/22 16:22 77 09/08/22 16:22 103/53 L 09/08/22 16:19 99 09/08/22 16:19 65 09/08/22 16:19 68 09/08/22 16:19 120/68 09/08/22 16:14 99 09/08/22 16:14 77 09/08/22 16:10 87 L 09/08/22 16:10 89 09/08/22 16:09 99 09/08/22 16:09 72 09/08/22 16:04 100 09/08/22 16:04 80 09/08/22 16:04 122/70 09/08/22 16:00 20 09/08/22 16:00 20 09/08/22 15:59 100 09/08/22 15:59 66 09/08/22 15:54 100 09/08/22 15:54 67 09/08/22 15:53 92 09/08/22 15:53 78 09/08/22 15:49 100 09/08/22 15:49 69 09/08/22 15:49 80 09/08/22 15:49 133/61 09/08/22 15:44 99 09/08/22 15:44 61 09/08/22 15:15 36.8 C 09/08/22 15:39 99 09/08/22 15:39 71 09/08/22 15:34 100 09/08/22 15:34 72 09/08/22 15:35 67 09/08/22 15:35 121/72 09/08/22 15:30 18 09/08/22 15:30 18 09/08/22 15:29 95 09/08/22 15:29 57 L 09/08/22 15:24 98 09/08/22 15:24 58 L 09/08/22 15:21 92 09/08/22 15:21 73 09/08/22 15:19 98 09/08/22 15:19 57 L 09/08/22 15:20 57 L 09/08/22 15:20 97/55 L 09/08/22 15:00 20 09/08/22 15:00 20 09/08/22 15:14 100 09/08/22 15:14 59 L 09/08/22 15:11 58 L 09/08/22 15:11 120/55 L 09/08/22 15:09 100 09/08/22 15:09 67 09/08/22 15:04 96 09/08/22 15:04 59 L 09/08/22 15:04 96/62 L 09/08/22 14:59 99 09/08/22 14:59 68 09/08/22 14:54 98 09/08/22 14:54 61 09/08/22 14:49 100 09/08/22 14:49 62 09/08/22 14:50 58 L 09/08/22 14:50 107/56 L 09/08/22 14:44 99 09/08/22 14:44 65 09/08/22 14:39 99 09/08/22 14:39 63 09/08/22 14:30 20 09/08/22 14:30 20 09/08/22 14:35 58 L 09/08/22 14:35 109/57 L 09/08/22 14:34 99 09/08/22 14:34 64 09/08/22 14:29 99 09/08/22 14:29 63 09/08/22 14:24 99 09/08/22 14:24 77 09/08/22 14:19 99 09/08/22 14:19 60 09/08/22 14:19 120/63 09/08/22 14:14 98 09/08/22 14:14 58 L 09/08/22 14:09 99 09/08/22 14:09 68 09/08/22 14:09 98/57 L 09/08/22 13:30 20 09/08/22 13:30 20 09/08/22 14:04 97 09/08/22 14:04 60 09/08/22 14:04 60 09/08/22 14:04 99/54 L 09/08/22 13:59 99 09/08/22 13:59 84 09/08/22 13:54 95 09/08/22 13:54 66 09/08/22 13:49 99 09/08/22 13:49 72 09/08/22 13:49 100/58 L 09/08/22 13:44 99 09/08/22 13:44 75 09/08/22 13:39 100 09/08/22 13:39 71 09/08/22 13:34 99 09/08/22 13:34 67 09/08/22 13:35 66 09/08/22 13:35 114/68 09/08/22 13:29 99 09/08/22 13:29 78 09/08/22 13:24 98 09/08/22 13:24 70 09/08/22 13:20 75 09/08/22 13:20 115/59 L 09/08/22 13:19 99 09/08/22 13:19 82 09/08/22 13:14 100 09/08/22 13:14 59 L 09/08/22 13:09 99 09/08/22 13:09 71 09/08/22 13:04 99 09/08/22 13:04 66 09/08/22 13:05 65 09/08/22 13:05 107/64 09/08/22 13:00 20 09/08/22 13:00 20 09/08/22 12:59 96 09/08/22 12:59 68 09/08/22 12:54 100 09/08/22 12:54 71 09/08/22 12:49 98 09/08/22 12:49 67 09/08/22 12:49 102/57 L 09/08/22 12:45 73 09/08/22 12:45 107/71 09/08/22 12:44 100 09/08/22 12:44 66 09/08/22 12:39 95 09/08/22 12:39 80 09/08/22 12:39 90 09/08/22 12:39 84 09/08/22 12:34 99 09/08/22 12:34 77 09/08/22 12:34 68 09/08/22 12:34 105/56 L 09/08/22 12:30 18 09/08/22 12:30 18 09/08/22 12:29 99 09/08/22 12:29 64 09/08/22 12:24 98 09/08/22 12:24 66 09/08/22 12:19 99 09/08/22 12:19 66 09/08/22 12:20 65 09/08/22 12:20 106/55 L 09/08/22 12:14 97 09/08/22 12:14 68 09/08/22 12:00 18 09/08/22 12:00 18 09/08/22 12:09 98 09/08/22 12:09 67 09/08/22 12:04 100 09/08/22 12:04 74 09/08/22 12:05 69 09/08/22 12:05 108/57 L 09/08/22 11:59 98 09/08/22 11:59 70 09/08/22 11:54 98 09/08/22 11:54 75 09/08/22 11:49 97 09/08/22 11:49 73 09/08/22 11:50 74 09/08/22 11:50 104/58 L 09/08/22 11:44 99 09/08/22 11:44 65 09/08/22 11:39 97 09/08/22 11:39 67 09/08/22 11:30 18 09/08/22 11:30 18 09/08/22 11:34 99 09/08/22 11:34 64 09/08/22 11:35 61 09/08/22 11:35 104/62 09/08/22 11:29 99 09/08/22 11:29 72 09/08/22 11:25 65 09/08/22 11:25 129/61 09/08/22 11:24 99 09/08/22 11:24 66 09/08/22 11:19 100 09/08/22 11:19 65 09/08/22 11:17 80 09/08/22 11:17 110/60 09/08/22 11:15 69 09/08/22 11:15 108/55 L 09/08/22 11:14 99 09/08/22 11:14 62 09/08/22 11:14 112/54 L 09/08/22 11:11 63 09/08/22 11:11 103/57 L 09/08/22 11:09 99 09/08/22 11:09 64 09/08/22 11:09 103/55 L 09/08/22 11:07 72 09/08/22 11:07 100/57 L 09/08/22 11:05 70 09/08/22 11:05 104/57 L 09/08/22 11:04 99 09/08/22 11:04 75 09/08/22 11:04 113/59 L 09/08/22 11:01 69 09/08/22 11:01 112/60 09/08/22 10:59 99 09/08/22 10:59 72 09/08/22 10:57 108/63 09/08/22 10:55 75 09/08/22 10:55 109/61 09/08/22 10:54 100 09/08/22 10:54 71 09/08/22 10:54 71 09/08/22 10:54 103/61 09/08/22 10:51 74 09/08/22 10:51 116/80 09/08/22 10:49 100 09/08/22 10:49 77 09/08/22 10:50 79 09/08/22 10:50 109/71 09/08/22 10:47 76 09/08/22 10:47 108/73 09/08/22 10:44 100 09/08/22 10:44 76 09/08/22 10:39 100 09/08/22 10:39 79 09/08/22 10:34 100 09/08/22 10:34 66 09/08/22 10:34 108/69 09/08/22 10:30 18 09/08/22 10:30 18 09/08/22 10:29 100 09/08/22 10:29 63 09/08/22 10:24 100 09/08/22 10:24 71 09/08/22 10:00 18 09/08/22 10:00 18 09/08/22 09:30 71 09/08/22 09:30 118/67 09/08/22 09:00 20 09/08/22 09:00 20 09/08/22 07:55 36.8 C 09/08/22 07:44 64 110/68 Transfer of Care Handoff Completed per policy Notes Mental Status: alert / awake / arousable and participated in evaluation Patient Amnestic to Procedure: No Nausea / Vomiting: adequately controlled Pain: adequately controlled Airway Patency, RR, SpO2: stable & adequate BP & HR: stable & adequate Hydration State: stable & adequate Neuraxial Anesthesia: was administered and sensory block is resolving Anesthetic Complications: no major complications apparent and Pt Satisfied with anesthetic care
[2022-09-08] MEDS: TRANEXAMIC ACID 650 MG TABLET PO SCH (17:32)
[2022-09-08] MEDS: ACETAMINOPHEN 325 MG TAB PO PRN (17:38)
[2022-09-08] MEDS: IBUPROFEN 600 MG TAB PO PRN (20:38)
[2022-09-08] MEDS: DOCUSATE SODIUM 100 MG CAP PO SCH (20:39)
[2022-09-09] MEDS: TRANEXAMIC ACID 650 MG TABLET PO SCH ×3 (00:14→15:35)
[2022-09-09] MEDS: ACETAMINOPHEN 325 MG TAB PO PRN ×3 (01:36→15:33)
[2022-09-09] MEDS: IBUPROFEN 600 MG TAB PO PRN ×2 (05:46→15:33)
[2022-09-09 06:20] LABS: Hemoglobin 10.4 g/dl (12.0-16.0)
--- NOTE | 2022-09-09 06:29 | Obstetrical Progress Note ---
Date of Service <Katiana Sanchez DO - Last Filed: 09/09/22 06:29> September 09, 2022 Assessment & Plan <Katiana Sanchez DO - Last Filed: 09/09/22 06:29> (1) care following vaginal delivery: Feels well today. Eating well, voiding well, ambulating well. Pain well controlled with prn motrin. Routine care; OOB, ambulation, continue regular diet. Plan for discharge 24 hours after delivery, today or tomorrow. After discharge will have 6 week follow-up with Dr. Albarran. <Corin Albarran MD, FACOG - Last Filed: 09/09/22 08:26> (1) care following vaginal delivery: Plan Resident Physician Supervision Note: I was present with Dr. Sanchez during the history and exam. I discussed the case with the resident and agree with the findings and plan as documented in the note. Any exceptions or clarifications are listed here: stable doing well. eating, voiding, ambulating, bleeding slowed. taking the lysteda. wants to go home later today. abd soft ff 2 down, nt ext nt calves. ppd#1 s/p , instructions reviewed, f/u 6wk pp. 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 call with any concerns. bottlefeeding/rhpos/ri. Documented By: Corin Albarran MD, FACOG Subjective <Katiana Sanchez DO - Last Filed: 09/09/22 06:29> Pt is a 31 y/o female who is PPD#1 following at 39 weeks. Pt states that today she is feeling fine. This morning she had a bad cramp and felt like she passed a large clot, but nursing staff checked and the clot was appropriate size (<golf ball size) and her cramping has since improved. She states that otherwise her bleeding has improved since yesterday. She otherwise has been ambulating, voiding, and passing gas. With her cramping, the pain was 7/10 and she was given motrin. Otherwise, her pain has been very mild. She has no other questions or complaints at this time. She is bottle feeding. Constitutional: no fever, no chills or no sweats Respiratory: no dyspnea Cardiovascular: no chest pain or no palpitations Breast: no breast pain Genitourinary (female): no dysuria Neurologic: no headache(s) no changes in vision, no headaches Physical Exam <Katiana Sanchez DO - Last Filed: 09/09/22 06:29> General: Alert, oriented. No acute distress. Cardiac: Regular rate and rhythm, no murmurs, rubs, or gallops. Respiratory: Clear to auscultation bilaterally, no wheezes/rales/rhonchi. No increased work of breathing. Symmetrical chest rise. No respiratory distress. Abdomen: Soft, nontender, nondistended. Bowel sounds present. Uterus: Uterine fundus firm, palpable below the umbilicus. Lower extremities: No lower extremity edema or swelling. No deep calf pain. Results & Data <DO Lenny Angeles Last Filed: 09/09/22 06:29> Vital Signs (Past 12 Hours) Vital Signs Temp Pulse Pulse Resp BP Pulse Ox O2 Del Method 09/09/22 03:45 36.7 C 78 18 97/61 L Room Air 09/09/22 00:15 36.6 C 67 20 101/64 96 Room Air 09/08/22 20:00 37.0 C 67 20 109/73 96 Room Air Resident Activity Tracking <Katiana Sanchez DO - Last Filed: 09/09/22 06:29> Resident Involvement: Resident Care Provided Care Provided: OB Delivery
[2022-09-09] MEDS ORDERED: PRENATAL VITAMIN 1 TAB PO SCH (08:00)
[2022-09-09] MEDS: DOCUSATE SODIUM 100 MG CAP PO SCH (08:43)
[2022-09-09] MEDS ORDERED: CETIRIZINE HCL 10 MG TABLET PO SCH (09:00)
[2022-09-09] MEDS ORDERED: MONTELUKAST SODIUM 10 MG TABLET PO SCH (09:00)
== END 2022-09-09 18:40 | disposition home or self-care (01) | DRG 806 ==
LOC: 4S1 07:31 → 4E2 20:16